=== PATIENT | male | born 1955 | race Caucasian/White ===

== ENCOUNTER 2022-05-01 06:18 | Day surgery (SDC) | payer OTHER ==
[~2022-05-01] VITALS: Ht 170.2 cm; Wt 72.7 kg
[2022-05-01] MEDS ORDERED: BENZOCAINE 20% 50 MCG/SPRAY 57 GM TP ONE (06:19)
[2022-05-01] MEDS ORDERED: LIDOCAINE 4% 50 ML SOLUTION TP ONE (06:19)
[2022-05-01] MEDS ORDERED: LIDOCAINE 2% 11 ML JELLY TP ONE (06:19)
[2022-05-01] MEDS ORDERED: ALBUTEROL SULFATE 2.5 MG/0.5 ML NEB SOLUTION NEB ONE (06:19)
[2022-05-01] MEDS ORDERED: SODIUM CHLORIDE 0.9% 1,000 ML IV ONE (06:30)
[2022-05-01 07:10] LABS: COVID AG,FIA SOURCE NASAL SWAB
[2022-05-01] MEDS ORDERED: FentaNYL CITRATE PF 100 MCG/2 ML VIAL ONE (07:25)
[2022-05-01] MEDS ORDERED: MIDAZOLAM HCL 5 MG/ML VIAL ONE (07:25)
[2022-05-01] MEDS ORDERED: SODIUM CHLORIDE 0.9% 1,000 ML ONE (07:32)
[2022-05-01] MEDS ORDERED: ESZO3 PO (07:59)
[2022-05-01] MEDS ORDERED: TRAZ-257 PO (07:59)
[2022-05-01] MEDS ORDERED: MIRT-89 PO (07:59)
[2022-05-01] MEDS ORDERED: MethylPREDNISolone SOD SUCC 125 MG/2 ML VIAL IVP ONE (09:30)
[2022-05-01] MEDS ORDERED: PROMETH/PHENYLEPHRINE/CODEINE 5 ML ORAL.SYG PO ONE (09:45)
[2022-05-01] MEDS ORDERED: MethylPREDNISolone SOD SUCC 125 MG/2 ML VIAL ONE (09:47)
[2022-05-01] MEDS ORDERED: OXYGEN THERAPY IH SCH (20:00)
== END 2022-05-01 11:25 | disposition home or self-care (01) ==
LOC: SURGERY 06:18
PROVIDERS: ATTEND Internal Medicine Critical Care Medicine
DX: R05.3 Chronic cough (principal); J45.909 Unspecified asthma, uncomplicated; Z20.822 Contact with and (suspected) exposure to COVID-19; Z79.899 Other long term (current) drug therapy; Z98.890 Other specified postprocedural states
CPT/HCPCS: 31623; 87101; 87220; 87070; 88108; 88305; 31624; 94640; 71045; 87015; 87426; 87206; J3010; J2930; J2370; J2250; Q9967; J7030; C9803; J7613; Z7610